=== PATIENT | male | born 1955 | race American Indian/Alaskan Native ===

== ENCOUNTER 2020-04-18 12:49 | Observation (INO) | payer OTHER ==
[2020-04-18] MEDS ORDERED: ASPIRIN 325 MG TAB PO ONE (13:01)
--- NOTE | 2020-04-18 13:26 | XRay Report ---
CHEST 1 VIEW 04/18/2020 1:25 PM INDICATION / CLINICAL INFORMATION: Chest Pain. COMPARISON: None available. FINDINGS: SUPPORT DEVICES: None. HEART / MEDIASTINUM: No significant abnormality. LUNGS / PLEURA: There is blunting of the right costophrenic angle that probably represents a tiny eff usion. No pneumothorax. ADDITIONAL FINDINGS: No significant additional findings. IMPRESSION: 1. Probable tiny right pleural effusion without additional acute abnormality. Signer Name: Bharathi Lai MD Signed: 04/18/2020 1:22 PM Workstation Name: [id number]
[2020-04-18 14:20] LABS: Basophils % (Auto) 0.6 % (0.0-1.8); Eosinophils % (Auto) 0.7 % (0.0-4.3); Lymphocytes % (Auto) 18.6 % (13.4-35.0); Monocytes % (Auto) 7.1 % (0.0-7.3)
[2020-04-18 14:30] LABS: Hematocrit 42.1 % (35.5-45.6); Hemoglobin 14.1 gm/dl (11.8-15.2); Mean Corpuscular HGB Conc 34 % (32-34); Mean Corpuscular Volume 96 fl (84-94); Monocytes # (Auto) 0.4 K/mm3 (0.0-0.8); Platelet Count 317 K/mm3 (140-440); Red Blood Count 4.36 M/mm3 (3.65-5.03); Red Cell Distribution Width 12.6 % (13.2-15.2)
--- NOTE | 2020-04-18 14:40 | Consultation ---
History of Present Illness Consult date: 04/18/20 Requesting physician: MARIANELA PITTS Consult reason: other (? STEMI) History of present illness: The pt is a 64 YO male with a past medical history of HTN and tobacco use (smokes 1 pack per month). He is previously unknown to our practice. [facility] is [facility] followed at [facility]. He presented with c/o "cold symptoms" for 7 days prior to arrival and chest pain for the past 2 days. He states that last Saturday, he developed productive cough with black sputum and subjective chills. He then developed chest pain 2 days ago which he describes as a right-sided stabbing pain which is only present with deep inspiration and coughing. The pain radiates into the right-side of his upper back. His chest wall is also very tender to pal pation. He denies any SOB, palpitations, n/v, diaphoresis, dizziness or syncope. He denies any known prior cardiac issues, including CAD, AMI or HF. He walks every day for exercise and denies any occurrence of exertional chest pain. Past History Past Medical History: hypertension Social history: smoking Medications and Allergies Allergies Allergy/AdvReac Type Severity Reaction Status Date / Time Sulfa (Sulfonamide Allergy Swelling Verified 04/02/19 16:55 Antibiotics) Home Medications Medication Instructions Recorded Confirmed Last Taken Type Cholecalciferol (Vitamin D3) 2,000 unit PO QDAY 04/02/19 04/02/19 05/04/19 05:00 History [Vitamin D3 2,000 UNIT CAP] Ergocalciferol [Vitamin D2] 1 cap PO QWEEK 04/02/19 04/02/19 05/03/19 14:00 History Hydroxyzine HCl [hydrOXYzine] 50 mg PO PRN PRN 04/02/19 04/02/19 05/03/19 14:00 History Mirtazapine [Remeron 30mg TAB] 30 mg PO QHS 04/02/19 04/02/19 05/03/19 14:00 History Multivit-Min/FA/Lycopen/Lutein 1 each PO DAILY 04/02/19 04/02/19 05/04/19 05:00 History [Centrum Silver Tablet] Prazosin 1 mg PO QHS 04/02/19 04/02/19 05/03/19 14:00 History amLODIPine 5 mg PO DAILY 04/02/19 04/02/19 05/04/19 05:00 History raNITIdine HCl [Zantac] 300 mg PO BID 04/02/19 04/02/19 05/03/19 14:00 History Acetaminophen [Acetaminophen TAB] 500 mg PO Q6HR tablet 05/05/19 Unknown Rx HYDROcodone/APAP 5-325 [[place] 1 each PO Q6H PRN #10 tablet 05/05/19 Unknown Rx 5-325 mg TAB] Ibuprofen [Motrin 600 MG tab] 600 mg PO Q6HR tablet 05/05/19 Unknown Rx Review of Systems Constitutional: chills, no weight loss, no weight gain, no fever, no sweats Ears, nose, mouth and throat: no ear pain, no nose pain, no sinus pressure, no sinus pain Cardiovascular: chest pain, no orthopnea, no palpitations, no rapid/irregular heart beat, no edema, no syncope, no lightheadedness, no shortness of breath, no dyspnea on exertion Respiratory: cough with sputum, pain on inspiration, no shortness of breath, no dyspnea on exertion, no congestion, no wheezing Gastrointestinal: no abdominal pain, no nausea, no vomiting, no diarrhea, no constipation, no change in bowel habits Genitourinary Male: no dysuria, no hematuria, no flank pain, no discharge, no urinary frequency, no urinary hesitancy Musculoskeletal: no neck stiffness, no neck pain, no shooting arm pain, no arm numbness/tingling, no low back pain, no shooting leg pain, no leg numbness/tingling Integumentary: no rash, no pruritis, no redness, no sores, no wounds Neurological: no head injury, no paralysis, no weakness, no parathesias, no numbness, no tingling, no seizures, no syncope Psychiatric: no anxiety Endocrine: no cold intolerance, no heat intolerance Hematologic/Lymphatic: no easy bruising, no easy bleeding Allergic/Immunologic: no urticaria Physical Examination Vital Signs Temp Pulse Resp BP Pulse Ox 98.1 F 81 17 124/89 98 04/18/20 12:59 04/18/20 12:59 04/18/20 12:59 04/18/20 12:59 04/18/20 12:59 General appearance: no acute distress HEENT: Positive: PERRL, Normocephaly, Mucus Membranes Moist Neck: Positive: neck supple, trachea midline Cardiac: Positive: Reg Rate and Rhythm Lungs: Positive: Decreased Breath Sounds Neuro: Positive: Grossly Intact Abdomen: Negative: Tender Skin: Negative: Rash Musculoskeletal: No Pain Extremities: Absent: edema Results 04/18/20 13:31 04/18/20 13:31 CBC 04/18/20 Range/Units 13:31 WBC 5.5 (4.5-11.0) K/mm3 RBC 4.36 (3.65-5.03) M/mm3 Hgb 14.1 (11.8-15.2) gm/dl Hct 42.1 (35.5-45.6) % Plt Count 317 (140-440) K/mm3 Lymph # 1.0 L (1.2-5.4) K/mm3 [place] # 0.4 (0.0-0.8) K/mm3 Eos # 0.0 (0.0-0.4) K/mm3 Baso # 0.0 (0.0-0.1) K/mm3 - Imaging and Cardiology Echo: pending EKG: report reviewed, image reviewed EKG interpretations - Telemetry EKG Rhythm: Sinus Rhythm - EKG Sinus rhythms and dysrhythmias: sinus rhythm Repolarization changes or abnormalities: nonspecific abnormality, ST segment, and/or T wave Assessment and Plan Pt's chest pain appears pleuritic in nature and is highly reproducible with palpation of the chest wall. ECG with NSR and nonspecific abnormalities. Ev negative for AMI x 1, DDimer WNL. F/u ECG in AM and will plan for lexiscan MPI stress test in AM. NPO after MN. Obtain echo. Will follow. The patient has been seen in conjunction with Dr. Sg Lucero who agrees with the assessment and plan of care. - Patient Problems (1) Chest pain Status: Acute (2) Abnormal ECG Status: Acute (3) Cough Status: Acute (4) HTN (hypertension) Status: Chronic (5) Tobacco use Status: Chronic
[2020-04-18] MEDS ORDERED: IPRATROPIUM/ALBUTEROL SULFATE 3 ML AMPUL.NEB IH ONE (14:52)
[2020-04-18 14:53] LABS: BUN/Creatinine Ratio 21; Blood Urea Nitrogen 17 mg/dL (9-20); Calcium 9.6 mg/dL (8.4-10.2); Hemolysis Index 7
[2020-04-18] MEDS ORDERED: BENZONATATE 100 MG CAP PO ONE (14:53)
--- NOTE | 2020-04-18 14:58 | Emergency Department Report ---
ED Chest Pain HPI - General Chief Complaint: Chest Pain Stated Complaint: CP.RUNNY NOSE/TICKLE IN THROAT/COUGH Time Seen by Provider: 04/18/20 13:38 Source: patient Mode of arrival: Ambulatory Limitations: No Limitations - History of Present Illness Initial Comments: This is a 64-year-old -[place] male presents to the emergency department with complaints of some chest discomfort with respirations, runny nose, productive cough with greenish-yellow sputum, and shortness of breath. The patient says that the symptoms first began with a tickle in his throat, productive cough and some chills that started about 1 week ago. However, over the past 2 days the patient has been having some bilateral chest pains that occur when the patient is taking deep breaths or with coughing. He has a past medical history of hypertension, PTSD and tobacco use. The patient also admits to smoking cocaine, " or at least what I thought is cocaine", whenever he gets some flashbacks or is having to deal with his PTSD. He last used cocaine about 5 days ago. Patient usually follows up with the [facility] [place] for his medical needs. He has not taken anything for symptoms prior to presentation today. No recent travel or sick contacts at home. - Related Data Home Medications Medication Instructions Recorded Confirmed Last Taken Cholecalciferol (Vitamin D3) 2,000 unit PO QDAY 04/02/19 04/02/19 05/04/19 05:00 [Vitamin D3 2,000 UNIT CAP] Ergocalciferol [Vitamin D2] 1 cap PO QWEEK 04/02/19 04/02/19 05/03/19 14:00 Hydroxyzine HCl [hydrOXYzine] 50 mg PO PRN PRN 04/02/19 04/02/19 05/03/19 14:00 Mirtazapine [Remeron 30mg TAB] 30 mg PO QHS 04/02/19 04/02/19 05/03/19 14:00 Multivit-Min/FA/Lycopen/Lutein 1 each PO DAILY 04/02/19 04/02/19 05/04/19 05:00 [Centrum Silver Tablet] Prazosin 1 mg PO QHS 04/02/19 04/02/19 05/03/19 14:00 amLODIPine 5 mg PO DAILY 04/02/19 04/02/19 05/04/19 05:00 raNITIdine HCl [Zantac] 300 mg PO BID 04/02/19 04/02/19 05/03/19 14:00 Previous Rx's Medication Instructions Recorded Last Taken Type Acetaminophen [Acetaminophen TAB] 500 mg PO Q6HR tablet 05/05/19 Unknown Rx HYDROcodone/APAP 5-325 [[place] 1 each PO Q6H PRN #10 tablet 05/05/19 Unknown Rx 5-325 mg TAB] Ibuprofen [Motrin 600 MG tab] 600 mg PO Q6HR tablet 05/05/19 Unknown Rx Allergies Allergy/AdvReac Type Severity Reaction Status Date / Time Sulfa (Sulfonamide Allergy Swelling Verified 04/02/19 16:55 Antibiotics) Heart Score - HEART Score History: Slightly suspicious EKG: Non-specific Age: > 65 Risk factors: 1-2 risk factors Troponin: < normal limit HEART Score: 4 - Critical Actions Critical Actions: 4-6 pts:12-16.6% risk of adverse cardiac event. Should be admitted ED Review of Systems ROS: Stated complaint: CP.RUNNY NOSE/TICKLE IN THROAT/COUGH Other details as noted in HPI Comment: All other systems reviewed and negative Constitutional: chills. denies: fever Eyes: denies: eye pain, vision change ENT: denies: ear pain, throat pain Respiratory: cough, shortness of breath Cardiovascular: chest pain. denies: palpitations Gastrointestinal: denies: abdominal pain, vomiting Genitourinary: denies: dysuria, discharge Musculoskeletal: denies: joint swelling, arthralgia Skin: denies: rash, lesions Neurological: denies: headache, weakness ED Past Medical Hx - Past Medical History Hx Hypertension: Yes (2008) Hx GERD: Yes Hx Psychiatric Treatment: Yes (BIPOLAR/ SCHIZO/ PTSD) Hx HIV: No - Social History Smoking Status: Current Some Day Smoker Substance Use Type: None - Medications Home Medications: Home Medications Medication Instructions Recorded Confirmed Last Taken Type Cholecalciferol (Vitamin D3) 2,000 unit PO QDAY 04/02/19 04/02/19 05/04/19 05:00 History [Vitamin D3 2,000 UNIT CAP] Ergocalciferol [Vitamin D2] 1 cap PO QWEEK 04/02/19 04/02/19 05/03/19 14:00 History Hydroxyzine HCl [hydrOXYzine] 50 mg PO PRN PRN 04/02/19 04/02/19 05/03/19 14:00 History Mirtazapine [Remeron 30mg TAB] 30 mg PO QHS 04/02/19 04/02/19 05/03/19 14:00 History Multivit-Min/FA/Lycopen/Lutein 1 each PO DAILY 04/02/19 04/02/19 05/04/19 05:00 History [Centrum Silver Tablet] Prazosin 1 mg PO QHS 04/02/19 04/02/19 05/03/19 14:00 History amLODIPine 5 mg PO DAILY 04/02/19 04/02/19 05/04/19 05:00 History raNITIdine HCl [Zantac] 300 mg PO BID 04/02/19 04/02/19 05/03/19 14:00 History Acetaminophen [Acetaminophen TAB] 500 mg PO Q6HR tablet 05/05/19 Unknown Rx HYDROcodone/APAP 5-325 [[place] 1 each PO Q6H PRN #10 tablet 05/05/19 Unknown Rx 5-325 mg TAB] Ibuprofen [Motrin 600 MG tab] 600 mg PO Q6HR tablet 05/05/19 Unknown Rx ED Physical Exam - General Limitations: No Limitations - Other Other exam information: GENERAL: The patient is well-developed well-nourished. HENT: Normocephalic. Atraumatic. Patient has moist mucous membranes. EYES: Extraocular motions are intact. NECK: Supple. Trachea is midline. CHEST/LUNGS: Some mild rhonchi heard. No tachypnea or accessory muscle use. A dry cough heard during examination. There is no respiratory distress noted. HEART/CARDIOVASCULAR: Regular. There is no tachycardia. There is no murmur. ABDOMEN: Abdomen is soft, nontender. Patient has normal bowel sounds. SKIN: Skin is warm and dry. NEURO: The patient is awake, alert, and oriented. The patient is cooperative. The patient has no focal neurologic deficits. Normal speech. MUSCULOSKELETAL: There is no tenderness or deformity. There is no limitation range of motion. ED Course Vital Signs 04/18/20 04/18/20 04/18/20 12:59 13:51 14:00 Temperature 98.1 F Pulse Rate 81 68 58 L Respiratory 17 14 13 Rate Blood Pressure 124/89 139/101 O2 Sat by Pulse 98 98 Oximetry 04/18/20 14:30 Temperature Pulse Rate 56 L Respiratory 19 Rate Blood Pressure 141/109 O2 Sat by Pulse 100 Oximetry - Consultations Consultation #1: 04/18/20 15:10 The patient's initial EKG from the waiting room was concerning with some mild ST elevations to the septal and anterior leads without reciprocal depressions. This did not appear consistent with a STEMI but cardiology was contacted. The patient was seen by JUS Vázquez for [facility] cardiology, in the emergency department and the patient will be followed by [facility] and it appears he will have a stress test in the morning. NERY score - Nery Score Age > 65: (0) No Aspirin use within the Past 7 Days: (1) Yes 3 or more CAD Risk Factors: (0) No 2 or more Angina events in past 24 hrs: (1) Yes Known CAD with more than 50% Stenosis: (0) No Elevated Cardiac Markers: (0) No ST Deviation Greater than 0.5mm: (1) Yes NERY Score: 3 ED Medical Decision Making - Lab Data Result diagrams: 04/18/20 13:31 04/18/20 13:31 - EKG Data -: EKG Interpreted by Me EKG shows normal: sinus rhythm, axis (Left axis deviation), intervals, QRS complexes (Q waves to the septal leads), ST-T waves (There is some ST elevations to the anteroseptal leads without reciprocal depression. ) Rate: normal - EKG Data When compared to previous EKG there are: previous EKG unavailable Interpretation: other (Sinus rhythm, left axis deviation, rate of 68 bpm, Q waves to the septal leads, ST elevations to the anteroseptal leads without reciprocal depressions) - Radiology Data Radiology results: image reviewed interpreted by me: Chest x-ray does not show any acute process. There are no pleural effusions, obvious pneumonia and there is no pneumothorax. No significant cardiomegaly. - Medical Decision Making Initially this patient had some URI type symptoms but over the past 2 days has had some atypical chest pains that occur with deep respirations and/or coughing. His initial EKG through triage was concerning for some ST elevations to the anteroseptal leads without any reciprocal depressions. Cardiology was contacted immediately but they agreed that this does not appear consistent with an ST elevation [place]. However they did see the patient in the emergency department and appeared to have set up the patient for a stress test and echocardiogram in the morning. His repeat EKG appears improved from the initial 1. Chest x-ray does not show any pneumonia, pneumothorax, focal dilatation, or any acute process, but was read by radiology as a small right pleural effusion. Patient's labs have been mostly unremarkable thus far including CBC, metabolic panel and a negative troponin and d-dimer level. The patient will be admitted to the hospital for further evaluation and treatment and was accepted for admission by the hospitalist, Dr. Mccormack. Critical Care Time: No Critical care attestation.: If time is entered above; I have spent that time in minutes in the direct care of this critically ill patient, excluding procedure time. ED Disposition Clinical Impression: Acute chest pain, Abnormal ECG, Tobacco use, Cough HTN (hypertension) Qualifiers: Hypertension type: essential hypertension Qualified Code(s): I10 - Essential (primary) hypertension Disposition: OP ADMIT IP TO THIS HOSP Is pt being admited?: Yes Condition: Fair Time of Disposition: 15:30
--- NOTE | 2020-04-18 15:11 | History and Physical Report ---
History of Present Illness Chief complaint: Im having pain in my chest History of present illness: 64 YO Male with HTN, GERD, Nicotine Dependence, Bipolar, Schizophrenia presents to ED for evaluation. Patient states that he has experienced runny nose, productive cough with greenish-yellow sputum, shortness of breath over the past 1 week with acutely worsening symptoms over the past 2 days. Patient states that he has experienced pain in his chest over the past 2 days. Patient states that pain is 46/10, initially intermittent but has become more constant, stabbing in nature, radiates to the right side of his back. Patient reports ingestion of cocaine approximately 5 days ago. Patient transported to [facility] via private vehicle for further care and evaluation of the aforementioned symptoms. Patient seen and evaluated in the emergency department. Lab and imaging studies reviewed. Patient found to have symptoms consistent with angina. Cardiology team consulted in ED. Patient admitted to telemetry due to increased risk of decompensation. Patient is pending stress test in a.m. Patient denies fever, chills, palpitations, productive cough, skin rash, recent ill contacts, or known exposure to COVID-19. No prior admissions for review. All medication listed at time of admission has been reconciled. Advanced care planning conducted in ED. Past History Past Medical History: hypertension Past Surgical History: No surgical history (reviewed urinary tract calculi and c), Other (reviewed) Social history: , lives with family, smoking Family history: hypertension Medications and Allergies Allergies Allergy/AdvReac Type Severity Reaction Status Date / Time Sulfa (Sulfonamide Allergy Swelling Verified 04/02/19 16:55 Antibiotics) Home Medications Medication Instructions Recorded Confirmed Last Taken Type Cholecalciferol (Vitamin D3) 2,000 unit PO QDAY 04/02/19 04/02/19 05/04/19 05:00 History [Vitamin D3 2,000 UNIT CAP] Ergocalciferol [Vitamin D2] 1 cap PO QWEEK 04/02/19 04/02/19 05/03/19 14:00 History Hydroxyzine HCl [hydrOXYzine] 50 mg PO PRN PRN 04/02/19 04/02/19 05/03/19 14:00 History Mirtazapine [Remeron 30mg TAB] 30 mg PO QHS 04/02/19 04/02/19 05/03/19 14:00 Hi story Multivit-Min/FA/Lycopen/Lutein 1 each PO DAILY 04/02/19 04/02/19 05/04/19 05:00 History [Centrum Silver Tablet] Prazosin 1 mg PO QHS 04/02/19 04/02/19 05/03/19 14:00 History amLODIPine 5 mg PO DAILY 04/02/19 04/02/19 05/04/19 05:00 History raNITIdine HCl [Zantac] 300 mg PO BID 04/02/19 04/02/19 05/03/19 14:00 History Acetaminophen [Acetaminophen TAB] 500 mg PO Q6HR tablet 05/05/19 Unknown Rx HYDROcodone/APAP 5-325 [[place] 1 each PO Q6H PRN #10 tablet 05/05/19 Unknown Rx 5-325 mg TAB] Ibuprofen [Motrin 600 MG tab] 600 mg PO Q6HR tablet 05/05/19 Unknown Rx Review of Systems Constitutional: no weight loss, no weight gain, no fever, no chills Ears, nose, mouth and throat: nasal congestion Cardiovascular: chest pain, shortness of breath, no palpitations, no rapid/ir regular heart beat Respiratory: cough, cough with sputum, shortness of breath Gastrointestinal: no abdominal pain, no nausea, no vomiting, no diarrhea Genitourinary Male: no hematuria, no flank pain, no discharge, no urinary frequency, no urinary hesitancy Rectal: no pain, no incontinence, no bleeding Musculoskeletal: no neck pain, no shooting arm pain, no arm numbness/tingling Integumentary: no rash, no pruritis, no redness, no sores, no wounds Neurological: no head injury, no transient paralysis, no paralysis, no tingling, no seizures Psychiatric: no anxiety, no change in sleep habits, no sleep disturbances, no hypersomnia, no suicidal ideation Endocrine: no cold intolerance, no heat intolerance, no polyphagia, no polydipsia, no polyuria, no nocturia Hematologic/Lymphatic: no easy bruising, no easy bleeding Allergic/Immunologic: no allergic rhinitis, no wheezing Exam - Constitutional Vitals: Temp Pulse Resp BP Pulse Ox 98.1 F 56 L 19 141/109 100 04/18/20 12:59 04/18/20 14:30 04/18/20 14:30 04/18/20 14:30 08/31/20 14:30 General appearance: Present: mild distress - EENT Eyes: Present: PERRL ENT: hearing intact, clear oral mucosa - Neck Neck: Present: supple, normal ROM - Respiratory Respiratory effort: normal Respiratory: bilateral: CTA - Cardiovascular Heart Sounds: Present: S1 & S2. Absent: rub, click - Extremities Extremities: pulses symmetrical, No edema Peripheral Pulses: within normal limits - Abdominal General gastrointestinal: Present: soft, non-tender, non-distended, normal bowel sounds Male genitourinary: Present: normal - Integumentary Integumentary: Present: clear, warm, dry - Musculoskeletal Musculoskeletal: gait normal, strength equal bilaterally - Psychiatric Psychiatric: appropriate mood/affect, intact judgment & insight - Neurologic Neurologic: CNII-XII intact, moves all extremities HEART Score - HEART Score EKG: Non-specific Age: > 65 Risk factors: 1-2 risk factors Troponin: Troponin T < 0.010 ng/mL (0.00-0.029) 04/18/20 13:31 Troponin: < normal limit - Critical Actions Critical Actions: 4-6 pts:12-16.6% risk of adverse cardiac event. Should be admitted Results - Labs CBC & Chem 7: 04/18/20 13:31 04/18/20 13:31 Labs: Abnormal lab results 04/18/20 04/18/20 Range/Units 13:31 13:31 MCV 96 H (84-94) fl RDW 12.6 L (13.2-15.2) % Lymph # 1.0 L (1.2-5.4) K/mm3 Seg Neutrophils % 73.0 H (40.0-70.0) % Glucose 101 H (75-100) mg/dL Assessment and Plan - Patient Problems (1) Angina at rest Status: Acute Plan to address problem: chest pain protocol: Admit to telemetry, serial cardiac enzymes, EKG, cardiology team consulted in ED, stress test in a.m. (2) Acute electrocardiogram changes Status: Acute Plan to address problem: Cardiology team consulted, patient is pending stress test in a.m. (3) Nicotine dependence Status: Acute Qualifiers: Nicotine product type: cigarettes Substance use status: in withdrawal Qualified Code(s): F17.213 - Nicotine dependence, cigarettes, with withdrawal Plan to address problem: Patient counseled, supportive care, behavior change counseling, +15 minutes. (4) Cocaine dependence Status: Acute Qualifiers: Substance use status: uncomplicated Qualified Code(s): F14.20 - Cocaine dependence, uncomplicated Plan to address problem: Supportive care, outpatient follow-up for substance abuse counseling. (5) DVT prophylaxis Status: Acute Plan to address problem: SCD to bilateral lower extremities while in bed, patient is ambulatory.
[2020-04-18] MEDS ORDERED: NITROGLYCERIN 0.4 MG TAB SUBL SL PRN (15:13)
[2020-04-18] MEDS ORDERED: ONDANSETRON 4 MG/2 ML INJ IV PRN (15:13)
[2020-04-18] MEDS ORDERED: ALBUTEROL 2.5 MG/3 ML NEBU IH PRN (15:13)
[2020-04-18] MEDS ORDERED: ACETAMINOPHEN 325 MG TAB PO PRN ×2 (15:13)
[2020-04-19] MEDS ORDERED: REGADENOSON 0.4 MG/5 ML INJ IV ONE ×2 (08:44)
--- NOTE | 2020-04-19 10:16 | Treadmill Report ---
NUCLEAR PERFUSION SCAN REFERRING PHYSICIAN: Hospitalist service. PROTOCOL: The patient was assessed in postoperative state, given 10 mCi of technetium 99m at rest. The patient underwent rest imaging. The patient underwent Lexiscan stress test. At peak stress, the patient was given 26 mCi of technetium 99m. Shortly thereafter, the patient underwent stress imaging. Raw imaging reveals mild GI artifact. No significant motion artifact. SPECT images examined carefully in horizontal long axis, vertical long axis, short axis views. There is normal mitral uptake of radioisotope in all reported segments. No evidence of a significant fixed or reversible perfusion defect suggestive of prior infarction or ischemia. Gated wall motion reveals normal systolic thickening, calculated ejection fraction of 50%, no TID. CONCLUSIONS: 1. Normal myocardial perfusion scan without evidence of active ischemia or prior infarction. 2. Normal left ventricular systolic performance without evidence of transient ischemic dilatation or stress-induced segmental wall motion abnormalities. JOB# [id number] COLEEN/ZOHRA
[2020-04-19 10:31] VITALS: BP 135/94
--- NOTE | 2020-04-19 12:45 | Progress Note ---
Assessment and Plan S/p lexiscan MPI stress test this AM which was negative. tte reviewed - EF 45- 50%, mild LVH, impaired relaxation. Currently stable cardiac status. Chest pain improving. Pt may discharge from cardiology standpoint. Recommend pt follow up with [facility] within 2 weeks of discharge. The patient has been seen in conjunction with Dr. Sg Lucero who agrees with the assessment and plan of care. - Patient Problems (1) Chest pain Current Visit: No Status: Acute (2) Abnormal ECG Current Visit: No Status: Acute (3) Cough Current Visit: No Status: Acute (4) HTN (hypertension) Current Visit: No Status: Chronic Qualifiers: Hypertension type: essential hypertension Qualified Code(s): I10 - Essential (primary) hypertension (5) Tobacco use Current Visit: No Status: Chronic Subjective Date of service: 04/19/20 Principal diagnosis: cp Interval history: pt for stress test today, no current complaints. Objective Last Vital Signs Temp 97.9 F 04/19/20 07:40 Pulse 63 04/19/20 07:40 Resp 18 04/19/20 07:40 BP 135/94 04/19/20 08:58 Pulse Ox 99 04/19/20 07:40 - Physical Examination General: No Apparent Distress HEENT: Positive: PERRL, Normocephaly, Mucus Membranes Moist Neck: Positive: neck supple, trachea midline Cardiac: Positive: Reg Rate and Rhythm, S1/S2 Lungs: Positive: Decreased Breath Sounds Neuro: Positive: Grossly Intact Abdomen: Negative: Tender Skin: Negative: Rash Musculoskeletal: No Pain Extremities: Absent: edema - Labs and Meds CBC 04/18/20 Range/Units 13:31 WBC 5.5 (4.5-11.0) K/mm3 RBC 4.36 (3.65-5.03) M/mm3 Hgb 14.1 (11.8-15.2) gm/dl Hct 42.1 (35.5-45.6) % Plt Count 317 (140-440) K/mm3 Lymph # 1.0 L (1.2-5.4) K/mm3 [place] # 0.4 (0.0-0.8) K/mm3 Eos # 0.0 (0.0-0.4) K/mm3 Baso # 0.0 (0.0-0.1) K/mm3 Comprehensive Metabolic Panel 04/18/20 Range/Units 13:31 Sodium 138 (137-145) mmol/L Potassium 4.3 (3.6-5.0) mmol/L Chloride 100.4 (98-107) mmol/L Carbon Dioxide 27 (22-30) mmol/L BUN 17 (9-20) mg/dL Creatinine 0.8 (0.8-1.3) mg/dL Glucose 101 H (75-100) mg/dL Calcium 9.6 (8.4-10.2) mg/dL - Imaging and Cardiology EKG: report reviewed, image reviewed Echo: pending - EKG Sinus rhythms and dysrhythmias: sinus rhythm Repolarization changes or abnormalities: nonspecific abnormality, ST segment, and/or T wave
--- NOTE | 2020-04-19 12:54 | Discharge Summary ---
Providers - Providers Date of Admission: 04/18/20 15:13 Attending physician: JACKSON HERNANDEZ 04/18/20 Consult to Cardiac Rehabilitation [CONS] Routine Reason For Exam: Phase I Hospitalization Condition: Fair Hospital course: 64 YO Male with HTN, GERD, Nicotine Dependence, Bipolar, Schizophrenia presented to ED for evaluation. Patient stated that he had experienced runny nose, productive cough with greenish-yellow sputum, shortness of breath over the past 1 week with acutely worsening symptoms over the past 2 days. Patient stated that he had experienced pain in his chest over the past 2 days. Patient stated that pain is 46/10, initially intermittent but had become more constant, stabbing in nature, radiated to the right side of his back. Patient reported ingestion of cocaine approximately 5 days ago. Patient transported to [facility] via private vehicle for further care and evaluation of the aforementioned symptoms. Patient seen and evaluated in the emergency department. Lab and imaging studies reviewed. Patient found to have symptoms consistent with angina. Cardiology team consulted in ED. Patient admitted to telemetry due to increased risk of decompensation. Patient convalesced well during hospital course. Serial cardiac enzymes and EKG were unremarkable. Patient underwent stress test which did not reveal acute ischemia. Echocardiogram showed an ejection fraction of 45 to 50%. Patient medically optimized on date of discharge and subsequently discharged home and instructed to follow-up with primary care physician within 3 to 5 days. And to follow-up with cardiology team as directed. Patient seen and evaluated prior to discharge but no significant new physical exam findings. Patient discharged home. 35 minutes dedicated To patient discharge and coordination of care. Disposition: TO HOME OR SELFCARE - Discharge Diagnoses (1) Angina at rest Status: Acute (2) Acute electrocardiogram changes Status: Acute (3) Nicotine dependence Status: Acute Qualifiers: Nicotine product type: cigarettes Substance use status: in withdrawal Qualified Code(s): F17.213 - Nicotine dependence, cigarettes, with withdrawal (4) Cocaine dependence Status: Acute Qualifiers: Substance use status: uncomplicated Qualified Code(s): F14.20 - Cocaine dependence, uncomplicated (5) DVT prophylaxis Status: Acute Core Measure Documentation - Palliative Care Palliative Care/ Comfort Measures: Not Applicable - Core Measures Any of the following diagnoses?: none Exam - Constitutional Vitals: Temp Pulse Resp BP Pulse Ox 97.9 F 63 18 135/94 99 04/19/20 07:40 04/19/20 07:40 04/19/20 07:40 04/19/20 08:58 04/19/20 07:40 General appearance: Present: no acute distress, well-nourished - EENT Eyes: Present: PERRL ENT: hearing intact, clear oral mucosa - Neck Neck: Present: supple, normal ROM - Respiratory Respiratory effort: normal Respiratory: bilateral: CTA - Cardiovascular Heart Sounds: Present: S1 & S2. Absent: rub, click - Extremities Extremities: pulses symmetrical, No edema Peripheral Pulses: within normal limits - Abdominal General gastrointestinal: Present: soft, non-tender, non-distended, normal bowel sounds Male genitourinary: Present: normal - Integumentary Integumentary: Present: clear, warm, dry - Musculoskeletal Musculoskeletal: gait normal, strength equal bilaterally - Psychiatric Psychiatric: appropriate mood/affect, intact judgment & insight - Neurologic Neurologic: CNII-XII intact, moves all extremities Plan Activity: advance as tolerated Diet: low fat, low cholesterol, low salt Follow up with: [facility] [Other] - 7 Days
== END 2020-04-19 13:46 | disposition home or self-care (01) ==
LOC: ED 12:49 → 4A 15:13
PROVIDERS: ADMIT Internal Medicine; ATTEND Internal Medicine
DX: I20.9 Angina pectoris, unspecified (principal); R05 Cough; R94.31 Abnormal electrocardiogram [ECG] [EKG]; I10 Essential (primary) hypertension; K21.9 Gastro-esophageal reflux disease without esophagitis; F31.9 Bipolar disorder, unspecified; F20.9 Schizophrenia, unspecified; F43.10 Post-traumatic stress disorder, unspecified; F17.213 Nicotine dependence, cigarettes, with withdrawal; F14.20 Cocaine dependence, uncomplicated; Z79.899 Other long term (current) drug therapy; Z88.2 Allergy status to sulfonamides
CPT/HCPCS: 36415; 71045; 78452; 80048; 83880; 84484; 85025; 85379; 93005; 93017; 93306; 99285; A9502; G0378; J2785

== ENCOUNTER 2021-05-01 16:07 | Emergency (ER) | payer OTHER ==
[2021-05-01] MEDS ORDERED: SODIUM CHLORIDE 0.9% 1000 ML 1,000 ML IV ONE (17:14)
--- NOTE | 2021-05-01 17:20 | Emergency Department Report ---
ED Syncope HPI - General Stated Complaint: SYNCOPE Source: patient - History of Present Illness Initial Comments: Patient is 65-year-old male with history of possible post traumatic stress disorder. Patient brought to the emergency room from a local store for evaluation of 1 episode of syncope. Patient denied any loss of consciousness. Patient has a small laceration to the back of his head. Patient stated that he took Remeron before he get into the store. He stated that he always take it at night. Patient denied any chest pain, shortness of breath, focal weakness numbness or tingling sensation. No slurred speech. Patient stated that he is back to normal. Timing/Prior Episodes: no prior history, single episode today Precipitating Factors: Positive: none, lightheadedness. Negative: recent head trauma, rapid heart beat Context: standing Loss of Consciousness: no loss of consciousness Current Symptoms: back to normal - Related Data Allergies/Adverse Reactions: Allergies Sulfa (Sulfonamide Antibiotics) Allergy (Verified 04/02/19 16:55) Swelling Home Medications: Ambulatory Orders Cholecalciferol (Vitamin D3) [Vitamin D3 2,000 UNIT CAP] 2,000 unit PO QDAY 04/02/19 Ergocalciferol [Vitamin D2] 1 cap PO QWEEK 04/02/19 Hydroxyzine HCl [hydrOXYzine] 50 mg PO PRN PRN 04/02/19 Mirtazapine [Remeron 30mg TAB] 30 mg PO QHS 04/02/19 Multivit-Min/FA/Lycopen/Lutein [Centrum Silver Tablet] 1 each PO DAILY 04/02/19 Prazosin 1 mg PO QHS 04/02/19 amLODIPine 5 mg PO DAILY 04/02/19 raNITIdine HCl [Zantac] 300 mg PO BID 04/02/19 Acetaminophen [Acetaminophen TAB] 500 mg PO Q6HR tablet 05/05/19 HYDROcodone/APAP 5-325 [Jennings 5-325 mg TAB] 1 each PO Q6H PRN #10 tablet 05/05/19 Ibuprofen [Motrin 600 MG tab] 600 mg PO Q6HR tablet 05/05/19 ED Review of Systems ROS: Stated complaint: SYNCOPE Other details as noted in HPI Comment: All other systems reviewed and negative Constitutional: denies: chills, fever Respiratory: denies: cough, shortness of breath, SOB with exertion Cardiovascular: denies: chest pain, palpitations Gastrointestinal: denies: abdominal pain, nausea, vomiting, diarrhea Musculoskeletal: denies: back pain Neurological: denies: headache, weakness, numbness, paresthesias, confusion, abnormal gait, vertigo Psychiatric: anxiety. denies: depression, auditory hallucinations, visual hallucinations, suicidal thoughts ED Past Medical Hx - Past Medical History Hx Hypertension: Yes (2008) Hx Congestive Heart Failure: No Hx Diabetes: No Hx GERD: Yes Hx Psychiatric Treatment: Yes (BIPOLAR/ SCHIZO/ PTSD) Hx Asthma: No Hx COPD: No Hx HIV: No - Social History Smoking Status: Current Some Day Smoker - Medications Home Medications: Home Medications Medication Instructions Recorded Confirmed Last Taken Type Cholecalciferol (Vitamin D3) 2,000 unit PO QDAY 04/02/19 04/02/19 05/04/19 05:00 History [Vitamin D3 2,000 UNIT CAP] Ergocalciferol [Vitamin D2] 1 cap PO QWEEK 04/02/19 04/02/19 05/03/19 14:00 History Hydroxyzine HCl [hydrOXYzine] 50 mg PO PRN PRN 04/02/19 04/02/19 05/03/19 14:00 History Mirtazapine [Remeron 30mg TAB] 30 mg PO QHS 04/02/19 04/02/19 05/03/19 14:00 History Multivit-Min/FA/Lycopen/Lutein 1 each PO DAILY 04/02/19 04/02/19 05/04/19 05:00 History [Centrum Silver Tablet] Prazosin 1 mg PO QHS 04/02/19 04/02/19 05/03/19 14:00 History amLODIPine 5 mg PO DAILY 04/02/19 04/02/19 05/04/19 05:00 History raNITIdine HCl [Zantac] 300 mg PO BID 04/02/19 04/02/19 05/03/19 14:00 History Acetaminophen [Acetaminophen TAB] 500 mg PO Q6HR tablet 05/05/19 Unknown Rx HYDROcodone/APAP 5-325 [Jennings 1 each PO Q6H PRN #10 tablet 05/05/19 Unknown Rx 5-325 mg TAB] Ibuprofen [Motrin 600 MG tab] 600 mg PO Q6HR tablet 05/05/19 Unknown Rx ED Physical Exam - General General appearance: alert, in no apparent distress - Eye Eye exam: Present: normal appearance, PERRL - ENT ENT exam: Present: normal exam, normal orophraynx, mucous membranes moist - Neck Neck exam: Present: normal inspection, full ROM. Absent: tenderness, meningismus - Respiratory Respiratory exam: Present: normal lung sounds bilaterally - Cardiovascular Cardiovascular Exam: Present: regular rate, normal rhythm, normal heart sounds - GI/Abdominal GI/Abdominal exam: Present: soft, normal bowel sounds. Absent: distended, tenderness, guarding, rebound, rigid, organomegaly, mass, bruit, pulsatile mass, hernia - Extremities Exam Extremities exam: Present: normal inspection, full ROM, normal capillary refill. Absent: tenderness, pedal edema, joint swelling, calf tenderness - Back Exam Back exam: Present: normal inspection, full ROM. Absent: CVA tenderness (R), CVA tenderness (L) - Neurological Exam Neurological exam: Present: alert, oriented X3, CN II-XII intact - Psychiatric Psychiatric exam: Present: normal mood. Absent: suicidal ideation - Skin Skin exam: Present: warm, normal color ED Course Vital Signs 05/01/21 05/01/21 05/01/21 17:55 18:18 19:50 Temperature 98 F Pulse Rate 61 78 Respiratory 16 18 Rate Blood Pressure 149/100 126/95 [Right] O2 Sat by Pulse 98 99 100 Oximetry 05/01/21 21:00 Temperature Pulse Rate 90 Respiratory 18 Rate Blood Pressure [Right] O2 Sat by Pulse 98 Oximetry ED Medical Decision Making - Lab Data Result diagrams: 05/01/21 17:56 05/01/21 17:56 - EKG Data -: EKG Interpreted by Tn EKG shows normal: sinus rhythm Rate: normal - EKG Data Interpretation: no acute changes - Radiology Data Radiology results: report reviewed - Medical Decision Making Patient is 65-year-old male with history of possible medical stress disorder. Patient brought to the emergency room from a local store for evaluation of 1 episode of syncope. Patient denied any loss of consciousness. Patient has a small laceration to the back of his head. Patient stated that he took Remeron before he get into the store. He stated that he always take it at night. Patient denied any chest pain, shortness of breath, focal weakness numbness or tingling sensation. No slurred speech. Patient stated that he is back to normal EKG shows sinus rhythm with no ST elevation. Labs reviewed and is unremarkable. CT brain is negative for acute finding. Patient stated that he did not have any syncopal episode. Patient is able to walk with no difficulty. Patient advised to follow-up with his primary doctor in the next 2 to 3 days and to return to the ER if he develop any new symptoms. Critical care attestation.: If time is entered above; I have spent that time in minutes in the direct care of this critically ill patient, excluding procedure time. ED Disposition Clinical Impression: Syncope and collapse Disposition: 01 HOME / SELF CARE / HOMELESS Is pt being admited?: No Condition: Stable Instructions: Syncope, [id number], Syncope (ED) Referrals: PRIMARY CARE, [Primary Care Provider] - 3-5 Days
[2021-05-01 18:40] LABS: Basophils % (Auto) 0.5 % (0.0-1.8); Eosinophils % (Auto) 0.2 % (0.0-4.3); Hematocrit 38.7 % (35.5-45.6); Hemoglobin 12.7 gm/dl (11.8-15.2); Lymphocytes # (Auto) 0.9 K/mm3 (1.2-5.4); Lymphocytes % (Auto) 13.3 % (13.4-35.0); Mean Corpuscular HGB Conc 33 % (32-34); Mean Corpuscular Volume 96 fl (84-94); Monocytes # (Auto) 0.5 K/mm3 (0.0-0.8); Monocytes % (Auto) 7.2 % (0.0-7.3); Platelet Count 263 K/mm3 (140-440); Red Blood Count 4.02 M/mm3 (3.65-5.03); Red Cell Distribution Width 12.9 % (13.2-15.2)
--- NOTE | 2021-05-01 18:41 | Cat Scan Report ---
CT head/brain wo con INDICATION / CLINICAL INFORMATION: 65 years Male; Syncope. TECHNIQUE: Routine CT head without contrast. All CT scans at this location are performed using CT dos e reduction for ALARA by means of automated exposure control. COMPARISON: None. FINDINGS: BRAIN / INTRACRANIAL CONTENTS: No acute hemorrhage, mass effect, midline shift, hydrocephalus, or acu te, large territorial infarct. No signs of significant atrophy or chronic infarct. There are mild areas of increased signal intensity on FLAIR imaging in the white matter of the cerebr al hemispheres. These are nonspecific findings and may be related to microangiopathy (hypertension, d iabetes, atherosclerosis), given the patient's age. Disease CRANIOCERVICAL JUNCTION: No significant abnormality. ORBITS: No significant abnormality of visualized orbits. SINUSES / MASTOIDS: Mild mucosal thickening in the ethmoids. ADDITIONAL FINDINGS: Small lipoma seen superficial to the parietal bone rightward of midline, which s hould be of no clinical significance. IMPRESSION: 1. No focal mass, hemorrhage, hydrocephalus, or acute, large territorial infarct. Signer Name: Lee Garcia MD, III Signed: 05/01/2021 6:37 PM Workstation Name: [id number]
[2021-05-01 18:47] LABS: BUN/Creatinine Ratio 22; Blood Urea Nitrogen 22 mg/dL (9-20); Calcium 9.7 mg/dL (8.4-10.2); Hemolysis Index 4
[2021-05-01 19:14] LABS: INR > 17.67 (0.87-1.13)
[2021-05-01 19:50] VITALS: BP 126/95
[2021-05-01 20:10] LABS: INR 0.96 (0.87-1.13)
--- NOTE | 2021-05-03 10:05 | Electrocardiograph Report ---
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
--- NOTE | 2021-05-03 10:06 | Electrocardiograph Report ---
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
== END 2021-05-01 21:00 | disposition home or self-care (01) ==
LOC: ED 16:07
DX: R42 Dizziness and giddiness (principal); I10 Essential (primary) hypertension; K21.9 Gastro-esophageal reflux disease without esophagitis; F20.9 Schizophrenia, unspecified; F31.9 Bipolar disorder, unspecified; F43.10 Post-traumatic stress disorder, unspecified; F17.200 Nicotine dependence, unspecified, uncomplicated
CPT/HCPCS: 36415; 70450; 80048; 84484; 85025; 85610; 85730; 93005; 99284; J7030